=== PATIENT | male | born 2000 | race African-American/Black ===

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

== ENCOUNTER 2021-02-16 23:14 | Emergency (ER) | payer OTHER, SELFPAY ==
[2019-04-03 18:15] VITALS: BMI 35.6
[2021-02-16 23:15] VITALS: BP 165/97; PULSE 68; RESP 18; TEMP 36.2; O2SAT 100; BMI 44.9
--- NOTE | 2021-02-16 23:20 | EKG12_ITS ---
Test Reason : PALPS Blood Pressure : / mmHG Vent. Rate : 065 BPM Atrial Rate : 065 BPM P-R Int : 170 ms QRS Dur : 100 ms QT Int : 378 ms P-R-T Axes : 019 033 -10 degrees QTc Int : 393 ms Normal sinus rhythm Normal ECG Confirmed by BEVERLY BOWLING, TOÑA ([id number]), news assignment editor BARRINGTON TELLES ([id number]) on 02/19/2021 8:27:46 AM Referred By: BB Confirmed By:TOÑA PAUL MD
[2021-02-16 23:30] VITALS: PULSE 64; RESP 15; O2SAT 98
--- NOTE | 2021-02-16 23:32 | EDS_ITS ---
HPI History of Present Illness Chief Complaint: Palpitations Informant: patient Onset/Context/Timing Onset: Hours (1-2) Context: Gradual Onset Timing: Continuous Quality: Anxious, shaky, tingly Location: All over Current Severity: Mild Maximum Severity: Severe Worsened by: Situational factors Relieved by: Calming down Associated Symptoms Associated Symptoms: Racing heartbeat that is currently resolved Narrative Narrative: Patient states that he became very worked up concerning factors related to his relationship with his girlfriend with whom he currently lives. He could not calm himself down, and as a result started feeling his heart racing, headache, tingly all over, he became very concerned and presents for those reasons. He is more calm now, all the symptoms are better, but not resolved except for the racing heartbeat which is resolved. [facility] Medical History (Updated 02/16/21 @ 23:[address] Jordi Roberts MD) Anxiety Asthma Depression Home Medications No Known/Unobtainable [No Known Home Medications] 06/04/16 [History Last Taken Unknown] Allergy/AdvReac Type Severity Reaction Status Date / Time No Known Allergies Allergy Verified 02/16/21 23:15 Social History Smoking Status: Never smoker ROS ROS ED Constitutional Constitutional ED: Denies chills or fever(s) Eyes Eyes: Denies change in vision or diplopia ENT ENT ED: Denies rhinorrhea or sore throat Cardiovascular Cardiovascular: Reports racing heartbeat; Denies chest pain Respiratory/Chest Respiratory/Chest: Denies cough or dyspnea Gastrointestinal Gastrointestinal: Denies abdominal pain, diarrhea, nausea or vomiting Genitourinary Genitourinary ED: Denies dysuria or hematuria Musculoskeletal Musculoskeletal: Denies back pain or neck pain Integumentary Denies abscess or rash Neurologic Neurologic: Reports headache(s) and paresthesias; Denies weakness Psychiatric Psychiatric: Reports anxiety, depression and panic attacks; Denies suicidal ideation EXAM Physical Exam Const Vital Signs: 02/16/21 23:15 Temperature 97.1 F L Temperature Source Temporal Pulse Rate 68 Respiratory Rate 18 Blood Pressure 165/97 H Blood Pressure Mean 119 Pulse Ox 100 Oxygen Delivery Method Room Air Positive well nourished and well developed General Appearance ED: well developed and NAD HEENT Reports moist mucous membranes normocephalic and atraumatic Eyes PERRL and EOMs intact bilaterally Neck full ROM and supple Resp normal respiratory effort and clear to auscultation bilaterally Cardio regular rate, regular rhythm and no murmurs GI non-tender and non-distended Auscultation: normoactive bowel sounds Palpation: soft Back/Spine no CVA tenderness General Back: other FROM Extremity normal to inspection General Extremety ED: Negative for edema, pulses abnormal or tenderness General Extremity: Negative for edema or pulses abnormal Neuro oriented x3, CN's II-XII intact bilaterally and no sensory deficits noted Sensorium / Orientation: awake and alert Motor Exam: strength 5/5 throughout Psych mental status grossly normal, thought process normal, cooperative, affect normal, speech normal, activity/motor behavior normal, denies hallucinations, denies homicidal ideation and denies suicidal ideation Skin no rashes or lesions noted and no wounds MDM MDM MDM Narrative Medical decision making narrative: His EKG is normal, his exam is normal, he is not suicidal, he states that maybe talking to a counselor would be good for him, but he does not typically do well with them. 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 His significant other is with him, I discussed him following up with a counselor as an outpatient, he is comfortable with that plan and she has no concerns about this and is comfortable with him going back home with her. He does not appear intoxicated or under the influence of anything with regards to substances. He states he took himself off of Zoloft 4 or 5 years ago because he did not like it and it did not seem to help. We discussed reasons to return. EKG Initial EKG: Attestation: I personally reviewed and interpreted this EKG as follows: Interpretation: Sinus Rhythm Comments: Normal EKG, rate 65 Discharge Plan Triage Chief Complaint: Palpitations Other Complaint: Anxiety Headache ED Provider: Jordi Roberts Dx/Rx/DC Orders Clinical Impression: Panic attack, Depression Instructions: ED Anxiety Reaction Prescriptions: No Action No Known Home Medications RF: 0 Primary Care Provider: Gabe Gentile Referrals: Counseling,Center [GROUP OF PHYSICIANS] - Gabe Gentile MD [Primary Care Provider] - Disposition Disposition: Home, self care
[2021-02-16] MEDS: hydrOXYzine PAM 25 MG Capsule 50 MG PO (23:53)
[2021-02-16] MEDS: Naproxen 250 MG Tablet 500 MG PO (23:53)
[2021-02-16 23:54] VITALS: BP 125/46; PULSE 55; RESP 20; O2SAT 99
== END 2021-02-16 23:57 | disposition home or self-care (01) ==
LOC: ED 23:44
PROVIDERS: Emergency Provider Emergency Medicine; PCP Family Medicine
DX: F41.0 Panic disorder [episodic paroxysmal anxiety] (principal); F32.9 Major depressive disorder, single episode, unspecified; J45.909 Unspecified asthma, uncomplicated
CPT/HCPCS: 93005; 99283

== ENCOUNTER 2021-04-29 14:53 | Emergency (ER) | payer OTHER, SELFPAY ==
[2021-04-29 14:53] VITALS: BP 171/97; PULSE 78; RESP 16; TEMP 36.6; O2SAT 100; BMI 48.1
--- NOTE | 2021-04-29 15:00 | ED.RN ---
THIS RN CALLED AND TALKED WITH ARABIC TRANSLATOR DEBRA. NO DRUG TESTING REQUIRED
--- NOTE | 2021-04-29 15:02 | RAD_ITS ---
STUDY: X-RAY - RIGHT RADIUS AND ULNA REASON FOR EXAM: Male, 20 years old. Pain and swelling following injury. TECHNIQUE: 2 view(s) of the forearm. COMPARISON: None. FINDINGS: There is non-specific soft tissue swelling. Normal visualized radius. Normal visualized ulna. RAD/Forearm 2 Views IMPRESSION: Soft tissue swelling. Electronically Signed: Kyrie Luis MD at 15:27 EDT , Service support ,
--- NOTE | 2021-04-29 15:31 | EDS_ITS ---
HPI History of Present Illness Chief Complaint: Upper Extremity Injury Informant: patient Occured/Mechanism Mechanism/Context: Yes direct blow and Yes work related Onset/Context/Timing Onset: Today Current Severity: Moderate Maximum Severity: Severe Narrative Narrative: Patient present secondary to right forearm injury. Patient states that he was removing a hook from a large dumpster. When he pulled the pin out the large hook swung back and pinned his forearm briefly against a metal beam. He was able to quickly extract his arm. He states he initially had some numbness and tingling in his arm that is now improving. He notes swelling along the proximal forearm. [facility] Medical History Anxiety Asthma Depression Home Medications hydrocodone-acetaminophen 1 tab PO Q6H PRN 3 Days #10 tab 04/29/21 [Rx Last Taken Unknown] naproxen [Naprosyn] 500 mg PO BID PRN #20 tab 04/29/21 [Rx Last Taken Unknown] Allergy/AdvReac Type Severity Reaction Status Date / Time No Known Allergies Allergy Verified 04/29/21 15:00 Social History Smoking Status: Never smoker ROS ROS ED Constitutional Constitutional ED: Denies chills or fever(s) Eyes Eyes: Denies change in vision ENT ENT ED: Denies sore throat Cardiovascular Cardiovascular: Denies chest pain Respiratory/Chest Respiratory/Chest: Denies cough or dyspnea Gastrointestinal Gastrointestinal: Denies abdominal pain, diarrhea, nausea or vomiting Genitourinary Genitourinary ED: Denies dysuria Musculoskeletal Musculoskeletal: Reports other Details: Right forearm pain ; Denies back pain Integumentary Reports Abrasions; Denies rash Neurologic Neurologic: Reports paresthesias; Denies headache(s) or weakness Allergic/Immunologic Allergic/Immunologic ED: Denies urticaria EXAM Physical Exam Const Vital Signs: 04/29/21 14:53 Temperature 97.9 F Temperature Source Temporal Pulse Rate 78 Respiratory Rate 16 Blood Pressure 171/97 H Blood Pressure Mean 121 Pulse Ox 100 Oxygen Delivery Method Room Air Positive well nourished and well developed General Appearance ED: well developed HEENT normocephalic and atraumatic Eyes EOMs intact bilaterally Neck supple Chest Wall inspection of chest normal and palpation of chest normal Resp normal respiratory effort and clear to auscultation bilaterally Cardio regular rate and regular rhythm GI non-tender Palpation: soft Extremity Extremity Narrative: Tenderness to palpation along the proximal right forearm with superficial abrasion. Mild edema when compared to left arm. Able to wiggle fingers and has good sensation and cap refill distally. Mild pain with passive flexion extension of the wrist. No sign of compartment syndrome at this time. Neuro oriented x3 and moves all extremities Sensorium / Orientation: alert Skin Skin Narrative: Superficial abrasions as noted above MDM MDM MDM Narrative Medical decision making narrative: Right forearm x-rays were obtained per [facility] protocol. Patient was given naproxen and [place] for pain. Radiography Diagnostic Testing: Radiology Impression Forearm X-Ray 04/29/21 15:02 IMPRESSION: Soft tissue swelling. Electronically Signed: Kyrie Luis MD at 15:27 EDT , Service support , Treatment and Re-Evaluation Comments:: Right forearm x-ray per my interpretation reveals no fracture. Patient's abrasions are cleansed. Jeffry wrap is applied. Patient is given ice packs and instructed to keep his arm elevated. He will follow-up with [facility] care. Again on repeat evaluation no evidence of compartment syndrome. Discharge Plan Triage Chief Complaint: Upper Extremity Injury ED Provider: Kayy Dill Dx/Rx/DC Orders Clinical Impression: Crushing injury of right arm Instructions: ED Contusion, Upper Extremity Prescriptions: New naproxen [Naprosyn] 500 mg tablet 500 mg PO BID PRN (Reason: pain) Qty: 20 RF: 0 hydrocodone-acetaminophen 5-325 mg tablet 1 tab PO Q6H PRN (Reason: pain) 3 Days Qty: 10 RF: 0 Stand Alone Forms: Work Status Form Primary Care Provider: Gabe Gentile Referrals: [facility] [GROUP OF PHYSICIANS] - 3-5 Days Gabe Gentile MD [Primary Care Provider] - Disposition Disposition: Home, Self Care
[2021-04-29] MEDS: Naproxen 500 MG Tablet PO (15:49)
[2021-04-29] MEDS: HYDROcodone Bitartrate/Apap 5/325 Tablet PO (15:49)
[2021-04-29 16:24] VITALS: BP 141/70
== END 2021-04-29 16:25 | disposition home or self-care (01) ==
LOC: ED 16:19
PROVIDERS: Emergency Provider Emergency Medicine; PCP Family Medicine
DX: S47.1XXA Crushing injury of right shoulder and upper arm, initial encounter (principal); W23.0XXA Caught, crushed, jammed, or pinched between moving objects, initial encounter; F32.9 Major depressive disorder, single episode, unspecified; F41.9 Anxiety disorder, unspecified; G89.11 Acute pain due to trauma; J45.909 Unspecified asthma, uncomplicated; Z79.1 Long term (current) use of non-steroidal anti-inflammatories (NSAID)
CPT/HCPCS: 73090; 99283

== ENCOUNTER 2022-02-09 11:41 | Emergency (ER) | payer BC, SELFPAY ==
[2022-02-09 11:42] VITALS: BP 156/78; PULSE 63; RESP 17; TEMP 36.6; O2SAT 100; BMI 47.5
--- NOTE | 2022-02-09 13:02 | EDS_ITS ---
HPI History of Present Illness HPI Narrative: Patient was instructed to left ankle injury that occurred today. 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 Patient states he inverted his left ankle. Patient states his pain is over the lateral aspect of the left ankle. Patient states it is worse with any weightbearing. Patient states that ice also makes it worse. Patient describes his pain as throbbing. Patient denies any pain over the fifth metatarsal or proximal fibula. Patient denies any other injuries. Chief Complaint: Lower Extremity Injury Informant: patient Occured/Mechanism Comment: Inversion injury Onset/Context/Timing Context: Sudden Onset Timing: Continuous Quality of Pain: Throbbing Worsened by: Ice, weightbearing Relieved by: Nothing Associated Symptoms Associated Symptoms: Negative for Parasthesia, Weakness and Loss of Funtion PFSH [facility] Medical History Anxiety Asthma Depression Home Medications NK 02/09/22 [History Last Taken Unknown] Allergy/AdvReac Type Severity Reaction Status Date / Time No Known Allergies Allergy Verified 02/09/22 11:41 Surgical History no surgical history no surgical history Social History Smoking Status: Never smoker ROS ROS ED Constitutional Constitutional ED: Denies chills or fever(s) Eyes Eyes: Denies blurry vision or change in vision ENT ENT ED: Denies rhinorrhea or sore throat Cardiovascular Cardiovascular: Denies chest pain or palpitations Respiratory/Chest Respiratory/Chest: Denies cough or dyspnea Gastrointestinal Gastrointestinal: Denies nausea or vomiting Genitourinary Genitourinary ED: Denies dysuria or hematuria Musculoskeletal Musculoskeletal: Denies back pain or neck pain Integumentary Denies abscess or rash Neurologic Neurologic: Denies headache(s) or weakness Allergic/Immunologic Allergic/Immunologic ED: Denies mouth swelling or urticaria EXAM Physical Exam Const Vital Signs: 02/09/22 11:42 Temperature 97.8 F Temperature Source Temporal Pulse Rate 63 Respiratory Rate 17 Blood Pressure 156/78 H Blood Pressure Mean 104 Pulse Ox 100 Oxygen Delivery Method Room Air Positive well nourished and well developed General Appearance ED: well developed and NAD HEENT Reports moist mucous membranes Extremity Extremity Narrative: There is tenderness over the distal fibula and lateral malleolus. There is no bony crepitance or step-off. There is a mild edema noted. Range of motion was slightly limited in all motions of the left ankle secondary to pain. There is no tenderness over the proximal fibula or fifth metatarsal. Pedal pulses are equal bilaterally. Sensation was intact to light touch in all digits. Capillary refill was less than 2 seconds in all digits. Neuro oriented x3, CN's II-XII intact bilaterally, moves all extremities and no sensory deficits noted Sensorium / Orientation: alert Motor Exam: strength 5/5 throughout Psych mental status grossly normal MDM MDM MDM Narrative Medical decision making narrative: X-rays of the left ankle were obtained. There are 3 views. On my interpretation, there is no acute fracture. There is no dislocation. There is an old avulsion fractures of the distal fibula and lateral aspect of the talus. There is no soft tissue swelling. Radiologist also interpreted the x-rays and agrees. Patient was given an Aircast. Patient was instructed to ice and elevate the left ankle. Patient was instructed to take Tylenol or ibuprofen as needed for pain. Patient understood and was agreeable with the plan. All questions were answered. Radiography Diagnostic Testing: Clinical Impression(s) from Imaging Studies Ankle X-Ray 02/09/22 13:15 IMPRESSION: Corticated ossicles at the distal aspect of the lateral malleolus and dorsal to the neck of the talus suggestive of old injuries. Lateral soft tissue swelling. Electronically Signed: Quinten Yadav MD at 14:07 EDT Reading Location ID and State: [address] [place] [address] Tel , Service support , Discharge Plan Triage Chief Complaint: Lower Extremity Injury ED Provider: Abdullahi uGan Dx/Rx/DC Orders Clinical Impression: Left ankle sprain Instructions: ED Ankle Sprain (Adult) Prescriptions: No Action NK RF: 0 Primary Care Provider: Gabe Gentile Referrals: Gabe Gentile MD [Primary Care Provider] - 5-7 Days Disposition Disposition: Home, Self Care Discharge Date/Time: 02/09/22 15:50
--- NOTE | 2022-02-09 13:15 | RAD_ITS ---
STUDY: X-RAY - LEFT ANKLE REASON FOR EXAM: Left ankle injury. TECHNIQUE: 3 view(s) of the ankle. COMPARISON: None. FINDINGS: Normal visualized distal tibia and fibula. There is a corticated ossicle at the distal aspect of the lateral malleolus. Normal tibiotalar articulation and ankle mortise. There is a small corticated ossicle at the dorsal aspect of the neck of the talus. The visualized subtalar, talonavicular, calcaneocuboid and tarsal articulations are normal. There is lateral soft tissue swelling. RAD/Ankle min 3 Views IMPRESSION: Corticated ossicles at the distal aspect of the lateral malleolus and dorsal to the neck of the talus suggestive of old injuries. Lateral soft tissue swelling. Electronically Signed: Quinten Yadav MD at 14:07 EDT ,
== END 2022-02-09 15:50 | disposition home or self-care (01) ==
PROVIDERS: Emergency Provider Emergency Medicine; PCP Family Medicine; Visit Provider Emergency Medicine
DX: S93.402A Sprain of unspecified ligament of left ankle, initial encounter (principal); X50.1XXA Overexertion from prolonged static or awkward postures, initial encounter; Y93.89 Activity, other specified
CPT/HCPCS: 73610; 99283; A4216

== ENCOUNTER 2022-11-22 12:48 | Emergency (ER) | payer BC, SELFPAY ==
[2022-11-22 12:48] VITALS: BP 177/72; PULSE 55; RESP 16; TEMP 36.6; O2SAT 100; BMI 44.1
--- NOTE | 2022-11-22 13:41 | EDS_ITS ---
HPI History of Present Illness Chief Complaint: Suicidal Narrative Narrative: Presents with depression and suicidal ideations, he has had chronic depression which she seems to be getting worse. He is now not sleeping as much at night, he does not have interest, he is thought about hurting himself multiple times, this includes trying to run off the road and he has thought about borrowing one of his friends guns to shoot himself. He was brought in by mother, he wrote a text to her last night implying that he wants to go to sleep forever. PFSH PFS Medical History Anxiety Asthma Depression Home Medications NK 02/09/22 [History Last Taken Unknown] Allergy/AdvReac Type Severity Reaction Status Date / Time No Known Allergies Allergy Verified 11/22/22 12:52 Family History no significant family his Surgical History no surgical history Social History Smoking Status: Never smoker ROS ROS ED ROS Narrative Past medical history: Reviewed Medications: None Social history: Noncontributory Review of systems: He has no somatic complaints General: No fever Cardiovascular: No chest pain Respiratory: No shortness of breath or cough Gastrointestinal: No abdominal pain, nausea vomiting or diarrhea Musculoskeletal: Denies myalgias no difficulty with ambulation Skin: No rash Neurological: No memory loss, confusion or any focal weakness Psych: As in HPI EXAM Physical Exam Narrative Exam Narrative: Physical exam General: Well nourished, Well developed, No Acute Distress Head: Normocephalic, Atraumatic Eyes: Conjunctiva not pale ENT: Moist mucous membranes Neck: Supple, Nontender, No lymphadenopathy Cardiovascular: Regular rate, Regular rhythm Respiratory: No distress Abdomen: Soft, Nontender, Nondistended Back: Nontender, Normal Inspection. Negative for: CVA tenderness Extremities: Nontender, No edema Skin: Normal color, No rash Psychological, he is pleasant he answers my questions appropriately, he avoids eye contact and has a somewhat flat sad affect. Const Vital Signs: 11/22/22 12:48 Temperature 98 F Temperature Source Temporal Pulse Rate 55 L Respiratory Rate 16 Blood Pressure 177/72 H Blood Pressure Mean 107 Pulse Ox 100 Oxygen Delivery Method Room Air MDM MDM MDM Narrative Medical decision making narrative: Patient has suicidal ideations. Medical clearance was done including CBC CMP tox screen. Because of his suicidal ideation I pink slipped him. He will need transfer I will get the psych liaison to see him, she is her social media executive Luna. Otherwise patient be turned over to the oncoming ED physician. Discharge Plan Triage Chief Complaint: Suicidal ED Provider: Nolberto Zeng Dx/Rx/DC Orders Clinical Impression: Depression, Suicidal ideation Prescriptions: No Action NK Primary Care Provider: Gabe Gentile Referrals: Gabe Gentile MD [Primary Care Provider] - Disposition Disposition: Psychiatric Hospital or Unit
[2022-11-22 13:46] LABS: Absolute Lymphocyte Count 1.32 X10^3/uL (0.83-4.51); Absolute Neutrophil Count 2.5 X10^3/uL (2.0-7.7); Basophil# 0.02 X10^3/uL; Basophil% 0.4 % (0-1); Eosinophils% 2.2 % (0-5); Hemoglobin 14.7 g/dL (13.0-16.5); Lymphocyte # 1.32 X10^3/ul (0.83-4.51); Lymphocyte % 29.7 % (19-41); Mean Corpuscular Hgb 25.9 pg (27.0-32.0); Mean Corpuscular Volume 81.1 fL (80-94); Mean Platelet Vol. 10.9 fl (6.2-12.0); Monocyte# 0.47 X10^3/uL; Monocyte% 10.6 % (0-10); NRBC Flagged by Analyzer 0 % (0-5); Neutrophil # 2.53 X10^3/uL (2.7-7.7); Neutrophil % 56.9 % (47-70); POSITIVE COUNT YES; Platelet Count 206 K/mm3 (150-450); RBC Distribution Width CV 13.2 % (11.6-14.6); Red Blood Count 5.67 M/mm3 (4.6-6.2); White Blood Count 4.5 K/mm3 (4.4-11.0)
[2022-11-22 13:54] LABS: Anion Gap 6 (5-15); BUN 12 mg/dL (7-18); BUN/Creat Ratio 10.8 RATIO (10-20); Calcium,Total 9.5 mg/dL (8.5-10.1); Chloride 107 mmol/L (98-107); Creatinine, Serum 1.11 mg/dL (0.70-1.30); EST Glomerular Filtration Rate 89 mL/min (>60); Est Glom Filt Rate - Afr Amer 108 mL/min (>60); Estimated Creatinine Clearance 126.88 ml/min; Glucose 111 mg/dL (74-106); Potassium 3.6 mmol/L (3.5-5.1); Sodium Level 141 mmol/L (136-145)
[2022-11-22 13:59] LABS: Amphetamine Urine VISTA NEGATIVE (<1000 ng/mL); Barbiturate Urine VISTA NEGATIVE (< 200 ng/mL); Benzodiazepine Urine VISTA NEGATIVE (< 200 ng/mL); Cocaine Urine VISTA NEGATIVE (< 300 ng/mL); Ecstacy Urine VISTA NEGATIVE (< 500 ng/mL); Methadone Urine VISTA NEGATIVE (< 300 ng/mL); PCP Urine VISTA NEGATIVE (< 25 ng/mL); THC Urine VISTA NEGATIVE (< 50 ng/mL); Vista UDS pH Range 5
[2022-11-22 14:28] LABS: Alcohol, Blood (Medical)-Serum < 3.0 mg/dL
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
--- NOTE | 2022-11-22 14:32 | ED.RN ---
PT IN ROOM. RAMAINS ANGRY. PT STATES THERE IS NO WAY I AM GOING ANYWHERE PT STATES YOU WILL HAVE TO DRAG ME KICKING,SCREAMING AND HANDCUFFED POLICE AT DOORWAY. PT MOTHER ATTEMPTS TO TALK WITH PT. PT JUST CONTINUES SAYING FUCK YOU ALL
--- NOTE | 2022-11-22 14:41 | ED.RN ---
PT DOES NOT WANT ANY MEDICATION AT THIS TIME.
[2022-11-22 15:30] VITALS: BP 155/84; PULSE 52; RESP 14; O2SAT 100
[2022-11-22 18:21] VITALS: BP 127/63; PULSE 54; RESP 16; O2SAT 100
--- NOTE | 2022-11-22 18:31 | ED.RN ---
PT CONFIRMS HE TAKES NO MEDICATIONS ON A DAILY BASIS
--- NOTE | 2022-11-22 20:15 | CM.ED ---
Addendum entered by Luna Viveros 11/22/22 21:09: JOSE ANTONIO also faxed referral to [facility]. SW updated patient and care team regarding referrals as well as provided head off to [facility] in case of denies. Plan: referrals pending at [facility] and [facility]. CANDIDO Edwards Original Note: Social Work Note JOSE ANTONIO contacted [facility] to inquire about bed availability, admissions staff report no beds available. JOSE ANTONIO contacted [facility] to inquire about bed availability, admissions staff report available beds. JOSE ANTONIO faxed referral. Plan: pending at [facility] CANDIDO Edwards
--- NOTE | 2022-11-22 22:45 | ED.RN ---
[facility] CALLED THEY ARE REVIEWING CASE AT THIS TIME
[2022-11-22 22:56] VITALS: BP 133/50; PULSE 52; RESP 18; O2SAT 98
--- NOTE | 2022-11-23 02:23 | ED.RN ---
TRIED TO GIVE UPDATE TO FATHER, NO ANSWER AT THIS TIME
--- NOTE | 2022-11-23 06:17 | ED.RN ---
update given to father about transportation and pt placement.
[2022-11-23 06:44] VITALS: BP 147/76; PULSE 67; RESP 15; O2SAT 100
== END 2022-11-23 09:09 ==
PROVIDERS: Emergency Provider Emergency Medicine; Visit Provider Emergency Medicine
DX: R45.851 Suicidal ideations (principal); F32.A Depression, unspecified
CPT/HCPCS: 80048; 80307; 82077; 85025; 87811; 96372; 99284